=== PATIENT | male | born 1980 | race Caucasian/White ===

== ENCOUNTER 2018-03-22 03:35 | Emergency (ER) | payer OTHER ==
[2018-03-22] MEDS: 0.9 % SODIUM CHLORIDE 1,000 ML IV ONE (04:00)
[2018-03-22] MEDS: KETOROLAC TROMETHAMINE 30 MG/1ML VIAL IVP ONE (04:01)
[2018-03-22 04:14] LABS: eGFR (Non-African) > 60
[2018-03-22] MEDS: ONDANSETRON HCL/PF 4 MG/ 2ML VIAL IVP ONE (04:22)
[2018-03-22] MEDS: ORPHENADRINE CITRATE 60 MG/2ML IM ONE (05:20)
[2018-03-22] MEDS: NALBUPHINE HCL 10 MG/1 ML IM STA (05:20)
[2018-03-22 06:02] LABS: BASO % 0.4 % (0.0-1.5); LYMPH ABS # 2.12 thou/uL (0.60-4.00); MCH. 30.7 pg (28.0-34.0); MONOCYTE % 6.3 % (0.0-11.0); PLATELET COUNT 196 thou/uL (130-400)
--- NOTE | 2018-03-22 06:03 | ED Physician Documentation ---
General Adult - HISTORIAN Historian: patient, paramedics - HPI Stated Complaint: Left flank pain Chief Complaint: General Adult Further Comments: yes (37 year old male brought in from [facility] with a 2 day history of left flank pain. 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) Surgeries/Procedures: other (Left thoracotomy and LL lobectomy) Allergies/Adverse Reactions: Allergies Allergy/AdvReac Type Severity Reaction Status Date / Time morphine Allergy Severe Hives Verified 03/22/18 04:10 Home Medications: Ambulatory Orders Medication Instructions Recorded Lisinopril [Prinivil] 20 mg PO DAILY 03/29/13 Carvedilol [Coreg] 25 mg PO BID #0 02/23/14 PARoxetine HCL [Paxil] 25 mg PO DAILY #0 02/23/14 Pantoprazole Sodium [Protonix] 20 mg PO DAILY 03/22/18 Verapamil HCl [Calan] 120 mg PO TID 03/22/18 - SOCIAL HX Smoking History: cigarettes - FAMILY HX Family History: No - VITAL SIGNS Vital Signs: Vital Signs Temp Pulse Resp BP Pulse Ox 98.9 F 99 H 18 150/98 97 03/22/18 03:40 03/22/18 03:40 03/22/18 03:40 03/22/18 03:40 03/22/18 03:40 - REVIEWED ASSESSMENTS Nursing Assessment Reviewed: Yes Vitals Reviewed: Yes Progress - Progress Progress: Ua negative 0620 CBC negative, will not progress with CT at this time. 0630 Patient now c/o nausea, 4 episodes of diarrhea over the past 2 days, states he tried a Soma but that did not work. Patient did not report Soma to nurse. ED Results Lab/Radiology - Lab Results Lab Results: Lab Results 03/22/18 03:50 Sodium 135 mmol/L L mmol/L (136-145) Potassium 3.7 mmol/L mmol/L (3.5-5.1) Chloride 101 mmol/L mmol/L (98-107) Carbon Dioxide 27 mmol/L mmol/L (22-30) BUN 5 mg/dL L mg/dL (9-20) Creatinine 0.70 mg/dL mg/dL (0.66-1.25) Est GFR ( Amer) > 60 (60 - ) Est GFR (Non-Af Amer) > 60 (60 - ) Glucose 110 mg/dL H mg/dL (74-106) Calcium 8.9 mg/dL mg/dL (8.4-10.2) Total Bilirubin 0.5 mg/dL mg/dL (0.2-1.3) AST 23 U/L U/L (15-46) ALT 33 U/L U/L (13-69) Alkaline Phosphatase 75 U/L U/L (38-126) Total Protein 6.6 g/dL g/dL (6.3-8.2) Albumin 3.8 g/dL g/dL (3.5-5.0) - Orders Orders: ED Orders Category Date Time Status Place IV Lock 1T Care 03/22/18 04:14 Active CBC REF Stat Lab 03/22/18 03:50 Received CMP Stat Lab 03/22/18 03:50 Completed UA W/MICRO IF INDICATED Stat Lab 03/22/18 03:51 Ordered 0.9 % Sodium Chloride [Normal Saline] 1,000 ml Med 03/22/18 03:51 Discontinued IV Q1H Ketorolac Tromethamine [Toradol] Med 03/22/18 03:51 Discontinued 30 mg IVP NOW ONE Nalbuphine HCl [Nubain] Med 03/22/18 05:13 Discontinued 10 mg IM NOW STA Ondansetron HCl/Pf [Zofran 4 mg/2 ml] Med 03/22/18 04:14 Discontinued 4 mg IVP NOW ONE Orphenadrine Citrate [Norflex] Med 03/22/18 05:13 Discontinued 60 mg IM NOW ONE General Adult Physical Exam - PHYSICAL EXAM GENERAL APPEARANCE: moderate distress EENT: eye inspection normal, KEARA RESPIRATORY: no resp distress, chest non-tender, breath sounds normal CVS: reg rate & rhythm, heart sounds normal, equal pulses, no murmur, no gallop, PMI nml, no JVD, no friction rub, 24 ABDOMEN: soft, no organomegaly, normal bowel sounds, no abdominal bruit, no distension BACK: CVA tenderness (L) SKIN: normal color, warm/dry, NR, INT, PAL, DR EXTREMITIES: non-tender, normal range of motion, no evidence of injury, no edema, J, [employer] NEUR[employer]: oriented X3, CN's nml as tested, motor nml, sensation nml, mood/affect nml Discharge Clincal Impression: Nausea Back pain Qualifiers: Back pain location: low back pain Chronicity: acute Back pain laterality: bilateral Sciatica presence: without sciatica Qualified Code(s): M54.5 - Low back pain Referrals: Primary Doctor,No [Primary Care Provider] - 2 Days Additional Instructions: Ice Rest Elevation You may use Tylenol every 4hour as needed for pain. Limit your dose to less than 4 G per day. Do not take ibuprofen, aleve, naproxen or any other NSAID while you are on toradol. Follow up with your primary care doctor. Condition: Stable Disposition: 01 HOME, SELF-CARE Decision to Admit: NO Decision Time: 06:37
[2018-03-22 06:05] LABS: APPEARANCE,URINE CLEAR (CLEAR); COLOR,URINE YELLOW (YELLOW); OCCULT BLOOD,URINE NEGATIVE (NEGATIVE); PH URINE 6.5 (5.0 - 8.0); UROBILINOGEN URINE 0.2 Eu (0.2-1.0)
[2018-03-22 06:54] VITALS: BP 126/96
== END 2018-03-22 06:50 | disposition home or self-care (01) ==
LOC: ED 03:35
DX: R11.0 Nausea (principal); M54.5 Low back pain
CPT/HCPCS: 80053; 81002; 85025; J1885; J2300; J2360; J2405; J7030; 96365; 96372; 96375